=== PATIENT | female | born 1995 | race Caucasian/White ===

== ENCOUNTER 2022-06-02 08:44 | Emergency (ER) | payer SELFPAY ==
[2022-06-02] MEDS ORDERED: HYDROCODONE/APAP 10/325 TAB ONE (09:12)
--- NOTE | 2022-06-02 10:09 | RAD REPORT ---
EXAM DESCRIPTION: RAD - Foot Right 3 View - 06/02/2022 9:45 am CLINICAL HISTORY: fall, swelling, site of pain not further localized COMPARISON: No comparisonsdelete select FINDINGS: No fracture, dislocation or periosteal reaction. No acute bone or joint finding identifiab le. No plantar spur. No air or foreign body in the soft tissues. IMPRESSION: Negative right foot examination.
--- NOTE | 2022-06-02 10:10 | RAD REPORT ---
EXAM DESCRIPTION: RAD - Ankle Right 3 View - 06/02/2022 9:45 am CLINICAL HISTORY: fall, swelling COMPARISON: No comparisons FINDINGS: No fracture, dislocation or periosteal reaction. No joint effusion seen. No joint space na rrowing. Soft tissues along the lateral ankle lateral aspect midfoot appear thickened edematous. IMPRESSION: Negative right ankle for bone or joint abnormality. Lateral foot and ankle soft tissue swelling.
--- NOTE | 2022-06-02 11:07 | ER ---
Nurse's Notes [facility] Name: Rosmery Hdz Age: 26 yrs Sex: Female : 1995 Arrival Date: 06/02/2022 Time: 08:46 Bed 12 Private MD: Diagnosis: Other sprain of right foot Presentation: 06/02 08:54 Chief complaint: Patient states: R foot pain after tripping over dog last night. ss Coronavirus screen: Client denies travel out of the [place] in the last 14 days. Ebola Screen: Patient denies exposure to infectious person. Patient denies travel to an Ebola-affected area in the 21 days before illness onset. Initial Sepsis Screen: Does the patient meet any 2 criteria? No. Patient's initial sepsis screen is negative. Does the patient have a suspected source of infection? No. Patient's initial sepsis screen is negative. Risk Assessment: Do you want to hurt yourself or someone else? Patient reports no desire to harm self or others. Onset of symptoms was June 01, 2022. 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 - Social history:: Smoking status: Reported history of juuling and/or vaping. Assessment: 11:01 Reassessment: Patient appears in no apparent distress at this time. Patient and/or ss family updated on plan of care and expected duration. Pain level reassessed. Patient is alert, oriented x 3, equal unlabored respirations, skin warm/dry/pink. Vital Signs: 08:54 Weight 75.75 kg; Height 5 ft. 2 in. (157.48 cm); Pain 9/10; ss 08:56 BP 153 / 117; Pulse 114; Resp 18; Temp 98.4(TE); Pulse Ox 97% ; ss 08:54 Body Mass Index 30.54 (75.75 kg, 157.48 cm) ED Course: 08:46 Patient arrived in ED. rg4 08:46 Johan Escobar PA is PHCP. [facility] 08:46 Earnest Bowen DO is Attending Physician. [facility] 08:55 Triage completed. ss 08:55 Arm band placed on right wrist. ss 09:46 Foot Right 3 View XRAY In Process Unspecified. EDMS 09:46 Ankle Right 3 View XRAY In Process Unspecified. EDMS 11:01 Deanna Phelan, RN is Primary Nurse. ss 11:01 Humphrey wrap to right ankle. ss 11:17 Leonel Stearns MD is Referral Physician. [facility] 11:20 No provider procedures requiring assistance completed. Patient did not have IV access ss during this emergency room visit. Administered Medications: 09:08 Drug: Cartwright (HYDROcodone-acetaminophen) 10 mg-325 mg 1 tabs Route: PO; ss 11:01 Follow up: Response: No adverse reaction; Pain is decreased ss Outcome: 11:07 Discharge ordered by MD. [facility] 11:20 Discharged to home with crutches, with family. 11:20 Condition: good 11:20 Discharge instructions given to patient, Instructed on discharge instructions, follow up and referral plans. medication usage, Demonstrated understanding of instructions, follow-up care, medications, Prescriptions given X 2. 11:21 Patient left the ED. ss Signatures: Dispatcher [employer] EDNV Johan Escobar PA PA jmm Smirch, Shelby, MARILYN RN Bessy Rodriguez rg4
--- NOTE | 2022-06-02 11:07 | EDPHYS ---
Physician Documentation [facility] Name: Rosmery Hdz Age: 26 yrs Sex: Female : 1995 Arrival Date: 06/02/2022 Time: 08:46 Bed 12 Private MD: ED Physician Earnest Bowen HPI: 06/02 08:54 This 26 yrs old Female presents to ER via Other with complaints of Foot Injury. jmm 08:54 The patient presents with an injury, pain. Onset: The symptoms/episode began/occurred jmm acutely, just prior to arrival. Modifying factors: The symptoms are alleviated by the symptoms are aggravated by movement, weight bearing. Associated signs and symptoms: Pertinent positives: swelling. This is a 26 year old female with no chronic medical conditions that presents to the ED with complaiints of right ankle and foot swelling after she tripped yesterday. Denies hitting her head. . 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 - Social history:: Smoking status: Reported history of juuling and/or vaping. ROS: 08:54 Constitutional: Negative for fever, chills, and weight loss, Cardiovascular: Negative jmm for chest pain, palpitations, and edema, Respiratory: Negative for shortness of breath, cough, wheezing, and pleuritic chest pain. 08:54 MS/extremity: Positive for pain, swelling. 08:54 All other systems are negative. Exam: 08:54 Constitutional: This is a well developed, well nourished patient who is awake, alert, jmm and in no acute distress. Head/Face: atraumatic. Eyes: EOMI, no conjunctival erythema appreciated ENT: Moist Mucus Membranes Neck: Trachea midline, Supple Chest/axilla: Normal chest wall appearance and motion. Cardiovascular: Regular rate and rhythm. No edema appreciated Respiratory: Normal respirations, no respiratory distress appreciated Abdomen/GI: Non distended Back: Normal ROM Skin: General appearance color normal 08:54 Musculoskeletal/extremity: swelling noted to the right ankle and foot, compartments are soft, full dorsalis pedis pulse, NVI. 08:54 Skin: Appearance: Color: normal in color. 08:54 Neuro: Orientation: is normal, Mentation: is normal, Memory: is normal. 08:54 Psych: Behavior/mood is pleasant, cooperative. Vital Signs: 08:54 Weight 75.75 kg; Height 5 ft. 2 in. (157.48 cm); Pain 9/10; ss 08:56 BP 153 / 117; Pulse 114; Resp 18; Temp 98.4(TE); Pulse Ox 97% ; ss 08:54 Body Mass Index 30.54 (75.75 kg, 157.48 cm) ss MDM: 08:54 Patient medically screened. [facility] 11:05 Data reviewed: vital signs, nurses notes. Counseling: I had a detailed discussion with bertram the patient and/or guardian regarding: the historical points, exam findings, and any diagnostic results supporting the discharge/admit diagnosis, radiology results, the need for outpatient follow up, to return to the emergency department if symptoms worsen or persist or if there are any questions or concerns that arise at home. ED course: Xray is negative for fracture. Patient advised to follow up with ortho. patient otherwise given strict return precautions. patient understood and agrees with the plan of care. . 06/02 08:56 Order name: Foot Right 3 View XRAY; Complete Time: 10:39 [facility] 06/02 08:56 Order name: Ankle Right 3 View XRAY; Complete Time: 10:39 [facility] 06/02 08:56 Order name: Ice pack; Complete Time: 09:08 [facility] 06/02 10:58 Order name: Humphrey wrap-joint; Complete Time: 11:01 [facility] Administered Medications: 09:08 Drug: Lindley (HYDROcodone-acetaminophen) 10 mg-325 mg 1 tabs Route: PO; ss 11:01 Follow up: Response: No adverse reaction; Pain is decreased ss Disposition: 19:57 Co-signature as Attending Physician, Earnest RUIZ was immediately available on-site ms3 in the Emergency Department for consultation in the care of the patient.. Disposition Summary: 06/02/22 11:07 Discharge Ordered Location: Home [facility] Condition: Stable [facility] Diagnosis - Other sprain of right foot [facility] Followup: [facility] - With: Private Physician - When: 2 - 3 days - Reason: Recheck today's complaints, Continuance of care, Re-evaluation by your physician Followup: [facility] - With: Leonel Stearns MD - When: 2 - 3 days - Reason: Recheck today's complaints, Continuance of care, Re-evaluation by your physician Discharge Instructions: - Discharge Summary Sheet jmm - Ankle Sprain jmm - Foot Sprain jm Forms: - Medication Reconciliation Form [facility] - Thank You Letter [facility] - Antibiotic Education [facility] - Prescription Opioid Use [facility] Prescriptions: - Diclofenac Sodium 75 mg Oral Tablet Sustained Release - take 1 tablet by ORAL route 2 times per day; 30 tablet; Refills: 0, Product [facility] Selection Permitted - orphenadrine citrate 100 mg Oral Tablet Sustained Release - take 1 tablet by ORAL route 2 times per day As needed; 20 tablet; Refills: 0, jm Product Selection Permitted Signatures: Dispatcher [employer] Johan Carrasco PA PA jmm Smirch, Shelby, MARILYN RN Earnest Silva DO DO ms3
[2022-06-02 11:41] VITALS: BP 153/117; TEMP 98.4; O2SAT 97
== END 2022-06-02 11:21 | disposition home or self-care (01) ==
LOC: ER 08:44
DX: S93.691A Other sprain of right foot, initial encounter (principal)

== ENCOUNTER 2022-06-24 10:42 | Inpatient (IN) | payer SELFPAY ==
--- NOTE | 2022-06-24 12:51 | RAD REPORT ---
EXAM DESCRIPTION: RAD - Foot Right 3 View - 06/24/2022 12:43 pm CLINICAL HISTORY: SWELLING COMPARISON: Foot Right 3 View dated 06/02/2022 FINDINGS: There is a large amount of soft tissue swelling is seen along the dorsum of the foot. This is presumably related to significant infection. There is underlying irregularity seen of the dorsal aspect of the cuneiform bones suspicious for developing osteomyelitis.
[2022-06-24 13:52] LABS: Absolute Lymphocytes (CBC) 1.4 K/uL (0.7-4.9); Hematocrit 44.8 % (36.0-45.0); Lymphocytes % 16.6 % (15.3-44.8); MCV 87.4 fL (80-100); MPV 7.3 fL (7.6-11.3); RBC Red Blood Cell Count 5.12 M/uL (3.86-4.86)
[2022-06-24] MEDS ORDERED: NA CHLORIDE 0.9% 1,000 ML ONE (13:57)
[2022-06-24] MEDS ORDERED: CLINDAMYCIN 900MG/D5W 900 MG/50 ML IVPB IV ONE (13:57)
[2022-06-24 14:16] LABS: Potassium 3.8 mmol/L (3.5-5.1)
--- NOTE | 2022-06-24 14:34 | RAD REPORT ---
EXAM DESCRIPTION: MRI - Foot Right Wo Cont - 06/24/2022 2:23 pm CLINICAL HISTORY: foot abscess Foot pain and swelling COMPARISON: Foot Right 3 View dated 06/24/2022; Ankle Right 3 View dated 06/02/2022; Foot Right 3 View dated 06/02/2022 FINDINGS: Moderate edema is present along the dorsum of the forefoot and midfoot. Mild subcutaneous fat reticulation is present along the lateral margin of the foot. Localized fluid collection to indic ate abscess not seen. There is diminished T1 signal elevated T2/IR signal base of the second metatars al middle cuneiform bone most suggestive of osteomyelitis. IMPRESSION: Probable osteomyelitis involving the base of the second metatarsal as well as the middle cuneiform bone. Moderate soft tissue edema swelling along the dorsum of the mid and forefoot. No localized fluid kierra ection seen however infected fluid / pus is likely present in this region. .
--- NOTE | 2022-06-24 15:13 | ER ---
Nurse's Notes [facility] Name: Rosmery Hdz Age: 26 yrs Sex: Female : 1995 Arrival Date: 06/24/2022 Time: 10:46 Bed 24 Private MD: Diagnosis: Osteomyelitis, unspecified Presentation: 06/24 11:49 Chief complaint: Patient states: was here for and ankle sprain 3 weeks ago and had a iw cut on top of right foot, now the cut is still oozing pus, foot is more swollen, she finished a round of cephalexin. Coronavirus screen: At this time, the client does not indicate any symptoms associated with coronavirus-19. Ebola Screen: Patient negative for fever greater than or equal to 101.5 degrees Fahrenheit, and additional compatible Ebola Virus Disease symptoms Patient denies exposure to infectious person. Patient denies travel to an Ebola-affected area in the 21 days before illness onset. No symptoms or risks identified at this time. Initial Sepsis Screen: Does the patient meet any 2 criteria? No. Patient's initial sepsis screen is negative. Does the patient have a suspected source of infection? No. Patient's initial sepsis screen is negative. Risk Assessment: Do you want to hurt yourself or someone else? Patient reports no desire to harm self or others. Onset of symptoms was June 02, 2022. 11:49 Method Of Arrival: Ambulatory iw 11:49 Acuity: MAY 3 iw Historical: - Allergies: 11:50 No Known Allergies; iw - Home Meds: 11:50 None [Active]; iw - PMHx: 11:50 None; iw - PSHx: 11:50 R arm repair; iw - Immunization history:: Adult Immunizations up to date. - Social history:: Smoking status: . Screenin:43 Abuse screen: Denies threats or abuse. Nutritional screening: No deficits noted. bm7 Tuberculosis screening: No symptoms or risk factors identified. Fall Risk None identified. Assessment: 14:14 Reassessment: Pt still in MRI. bm7 14:29 Reassessment: Patient and/or family updated on plan of care and expected duration. Pain bm7 level reassessed. Patient is alert, oriented x 3, equal unlabored respirations, skin warm/dry/pink. Student nurses and teacher at bedside to update vitals and administer medications. 15:11 Reassessment: informed SECOND HAND of blood pressure. New orders received. bm7 15:23 Reassessment: Dr. Hilliard wants patient NPO after midnight. bm7 15:43 Reassessment: Patient and/or family updated on plan of care and expected duration. Pain bm7 level reassessed. Patient is alert, oriented x 3, equal unlabored respirations, skin warm/dry/pink. 16:05 General: Appears in no apparent distress. comfortable, well developed, Behavior is bm7 calm, cooperative, appropriate for age. Pain: Complains of pain in right foot. Neuro: No deficits noted. Cardiovascular: No deficits noted. Respiratory: No deficits noted. GI: No deficits noted. No signs and/or symptoms were reported involving the gastrointestinal system. : No deficits noted. No signs and/or symptoms were reported regarding the genitourinary system. EENT: No deficits noted. No signs and/or symptoms were reported regarding the EENT system. Derm: Skin is intact, is healthy with good turgor, Skin is dry, Skin is pink, warm \T\ dry. reddened area to the top of the right foot. Musculoskeletal: No deficits noted. No signs and/or symptoms reported regarding the musculoskeletal system. 17:17 Reassessment: pt report having redness and feeling hot after vanco has been running for ayon about an hour. vanco was stop ED MD ordered Benadryl and Pepcid. per ED MD to restart vanco after an hour to see if pt continues to have same reaction. 19:34 Reassessment: attempted to call report at 1917 and [phone]. Nurse unavailable . jb4 20:37 Reassessment: Patient appears in no apparent distress at this time. Patient and/or jb4 family updated on plan of care and expected duration. Pain level reassessed. Patient is alert, oriented x 3, equal unlabored respirations, skin warm/dry/pink. Vital Signs: 11:50 BP 156 / 110; Pulse 99; Resp 16; Temp 98.1; Pulse Ox 100% on R/A; Weight 72.57 kg; iw Height 5 ft. 2 in. (157.48 cm); 14:41 BP 160 / 105; Pulse 87; Resp 16; Pulse Ox 100% on R/A; bm7 15:25 BP 160 / 97; Pulse 90; Resp 16; Pulse Ox 99% on R/A; bm7 16:03 BP 156 / 90; Pulse 88; Resp 16; Pulse Ox 100% on R/A; bm7 17:21 BP 147 / 89; Pulse 96; Resp 18; Pulse Ox 100% ; ayon 20:00 BP 128 / 88; Pulse 91; Resp 16; Pulse Ox 99% on R/A; jb4 11:50 Body Mass Index 29.26 (72.57 kg, 157.48 cm) ED Course: 10:46 Patient arrived in ED. mr 11:00 Nelsonshahla Karen, [facility] jh7 11:00 Gui Kang MD is Attending Physician. 7 11:50 Triage completed. iw 11:50 Arm band placed on. iw 12:44 XRAY Foot RIGHT 3 View In Process Unspecified. EDMS 13:41 Wound Culture Sent. mb7 13:41 BMP Sent. mb7 13:41 CBC with Diff Sent. mb7 13:41 Inserted saline lock: 20 gauge in right antecubital area, using aseptic technique. mb7 Blood collected. 14:24 Foot Right Wo Cont In Process Unspecified. EDMS 14:29 Patient moved back from [facility]. bm7 15:12 Porfirio Ward MD is Hospitalizing Provider. [facility] 15:16 Katy Santizo, RN is Primary Nurse. bm7 15:43 No apparent distress. Resting quietly. Awaiting bed assignment. bm7 15:43 Patient has correct armband on for positive identification. Bed in low position. Call 7 light in reach. Adult w/ patient. Client placed on continuous cardiac and pulse oximetry monitoring. NIBP monitoring applied. Warm blanket given. 17:23 No provider procedures requiring assistance completed. ayon 19:04 Primary Nurse role handed off by Katy Santizo, RN eb 20:00 Patient admitted, IV remains in place. jb4 Administered Medications: 14:40 Drug: NS 0.9% 1000 ml Route: IV; Rate: 1 bolus; Site: right antecubital; bm7 15:44 Follow up: IV Status: Completed infusion; IV Intake: 1000ml bm7 14:40 Drug: Clindamycin 900 mg Route: IVPB; Infused Over: 30 mins; Site: right antecubital; bm7 15:10 Follow up: IV Status: Completed infusion 7 15:18 Drug: cloNIDine 0.1 mg Route: PO; bm7 16:03 Follow up: Response: Blood pressure is lowered 7 15:43 Drug: vancoMYCIN 1 grams Route: IVPB; Infused Over: 2 hrs; Site: right antecubital; bm7 17:19 Drug: Benadryl (diphenhydrAMINE) 25 mg Route: IVP; Site: right antecubital; ayon 17:19 Follow up: Response: No adverse reaction 17:19 Drug: Pepcid (famotidine) 20 mg Route: IVP; Site: right antecubital; ayon 17:19 Follow up: Response: No adverse reaction Medication: 15:43 VIS not applicable for this client. 7 Intake: 15:44 IV: 1000ml; Total: 1000ml. 7 Outcome: 15:12 Decision to Hospitalize by Provider. [facility] 20:00 Admitted to Med/surg accompanied by tech, via wheelchair, room 212, with chart. 4 20:00 Condition: stable 20:00 Discharge instructions given to patient, Instructed on the need for admit, Demonstrated understanding of instructions. 20:39 Patient left the ED. 4 Signatures: Dispatcher [employer] EDMO Lo Magana Irene, Marlon Bautista RN RN MARILYN [facility] Zahraa Herrera Brittany, RN MARILYN [facility] Lo Kowalski Angelina Nesbitt RN RN ha Hadash, Jennifer, FNP [employer] [facility] Corrections: (The following items were deleted from the chart) 11:52 11:50 BP 115 / ???; Pulse 99bpm; Resp 16bpm; Pulse Ox 100% RA; Temp 98.1F; 72.57 kg; iw Height 5 ft. 2 in.; BMI: 29.2; iw
--- NOTE | 2022-06-24 15:13 | EDPHYS ---
Physician Documentation [facility] Name: Rosmery Hdz Age: 26 yrs Sex: Female : 1995 Arrival Date: 06/24/2022 Time: 10:46 Bed 24 Private MD: CINDI Physician Gui Kang HPI: 06/24 11:55 This 26 yrs old Female presents to ER via Ambulatory with complaints of Abscess. jh7 11:55 the patient presents with a swollen area of the right foot. Description: draining, jh7 swollen, warm. Onset: The symptoms/episode began/occurred 3 week(s) ago. 15:45 Patient reports that she fell and sprained her R ankle 3 weeks ago. She noticed a small jh7 cut at the top of her foot then, but was not concerned about it. About a week later she noticed that it was red, swollen, and draining. She had a telehealth visit and was prescribed 10 days of cephalexin. She states that she is only gotten worse since then and that the wound is draining yellow/green pus. Denies any fever.. Historical: - Allergies: 11:50 No Known Allergies; iw - Home Meds: 11:50 None [Active]; iw - PMHx: 11:50 None; iw - PSHx: 11:50 R arm repair; iw - Immunization history:: Adult Immunizations up to date. - Social history:: Smoking status: . ROS: 13:45 Constitutional: Negative for fever, chills, and weight loss, Neck: Negative for injury, jh7 pain, and swelling, Cardiovascular: Negative for chest pain, palpitations, and edema, Respiratory: Negative for shortness of breath, cough, wheezing, and pleuritic chest pain, Abdomen/GI: Negative for abdominal pain, nausea, vomiting, diarrhea, and constipation, Back: Negative for injury and pain, MS/Extremity: Negative for injury and deformity, Neuro: Negative for headache, weakness, numbness, tingling, and seizure. 13:45 MS/extremity: Positive for abrasion, erythema, pain, swelling, tenderness, Negative for paresthesias. 13:45 Skin: Positive for cellulitis, erythema, swelling. 13:45 All other systems are negative. Exam: 13:45 Constitutional: This is a well developed, well nourished patient who is awake, alert, jh7 and in no acute distress. Eyes: Pupils equal round and reactive to light, extra-ocular motions intact. Lids and lashes normal. Conjunctiva and sclera are non-icteric and not injected. Cornea within normal limits. Periorbital areas with no swelling, redness, or edema. Cardiovascular: Regular rate and rhythm with a normal S1 and S2. No gallops, murmurs, or rubs. Normal PMI, no JVD. No pulse deficits. Respiratory: Lungs have equal breath sounds bilaterally, clear to auscultation and percussion. No rales, rhonchi or wheezes noted. No increased work of breathing, no retractions or nasal flaring. Abdomen/GI: Soft, non-tender, with normal bowel sounds. No distension or tympany. No guarding or rebound. No evidence of tenderness throughout. Back: No spinal tenderness. No costovertebral tenderness. Full range of motion. 13:45 Musculoskeletal/extremity: ROM: full active range of motion, Sensation intact. 13:45 Skin: cellulitis, The entire dorsum of the right foot is swollen, tender to palpation, and has a wound with scant purulent drainage present. There is mild erythema noted. Unable to palpate pulses due to swelling.. Vital Signs: 11:50 BP 156 / 110; Pulse 99; Resp 16; Temp 98.1; Pulse Ox 100% on R/A; Weight 72.57 kg; iw Height 5 ft. 2 in. (157.48 cm); 14:41 BP 160 / 105; Pulse 87; Resp 16; Pulse Ox 100% on R/A; bm7 15:25 BP 160 / 97; Pulse 90; Resp 16; Pulse Ox 99% on R/A; bm7 16:03 BP 156 / 90; Pulse 88; Resp 16; Pulse Ox 100% on R/A; bm7 17:21 BP 147 / 89; Pulse 96; Resp 18; Pulse Ox 100% ; ayon 20:00 BP 128 / 88; Pulse 91; Resp 16; Pulse Ox 99% on R/A; jb4 11:50 Body Mass Index 29.26 (72.57 kg, 157.48 cm) MDM: 13:39 Patient medically screened. [facility] 15:15 Data reviewed: lab test result(s), radiologic studies, MRI, plain films. Data [facility] interpreted: Pulse oximetry: is 99 %. Interpretation: normal. Counseling: I had a detailed discussion with the patient and/or guardian regarding: the historical points, exam findings, and any diagnostic results supporting the discharge/admit diagnosis, the need for further work-up and treatment in the hospital. Physician consultation: Foster Hilliard MD was called at 15:03, was contacted at 15:03, regarding admission, consult, would like medications started, Vancomycin. ED course: Patient admitted to Dr. Ward with Dr. Hilliard as a consulting physician. The patient has no documented history of hypertension, but states that physicians have told her that she is going to stroke out 1 day due to her blood pressure. The patient's pressure decreased after clonidine 0.1 mg was given.. 15:45 Differential diagnosis: abscess, cellulitis, osteomyelitis. Data reviewed: vital signs, [facility] nurses notes. 06/24 12:06 Order name: CBC with Diff; Complete Time: 14:06 [facility] 06/24 12:06 Order name: BMP; Complete Time: 14:17 [facility] 06/24 12:20 Order name: Wound Culture [facility] 06/24 15:58 Order name: Basic Metabolic Panel [facility] 06/24 15:58 Order name: Basic Metabolic Panel [facility] 06/24 15:58 Order name: CBC with Automated Diff [facility] 06/24 12:07 Order name: XRAY Foot RIGHT 3 View; Complete Time: 13:01 [facility] 06/24 13:36 Order name: Foot Right Wo Cont; Complete Time: 14:46 [facility] 06/24 15:58 Order name: CBC with Automated Diff [facility] 06/24 16:24 Order name: SARS RAPID 06/24 17:12 Order name: SARS-COV-2 Antigen Rapid [facility] 06/24 12:25 Order name: IV Saline Lock; Complete Time: 13:41 [facility] 06/24 15:19 Order name: NPO; Complete Time: 15:19 [facility] 06/24 15:58 Order name: Regular EDVT Administered Medications: 14:40 Drug: NS 0.9% 1000 ml Route: IV; Rate: 1 bolus; Site: right antecubital; bm7 15:44 Follow up: IV Status: Completed infusion; IV Intake: 1000ml [facility] 14:40 Drug: Clindamycin 900 mg Route: IVPB; Infused Over: 30 mins; Site: right antecubital; 7 15:10 Follow up: IV Status: Completed infusion [facility] 15:18 Drug: cloNIDine 0.1 mg Route: PO; 7 16:03 Follow up: Response: Blood pressure is lowered [facility] 15:43 Drug: vancoMYCIN 1 grams Route: IVPB; Infused Over: 2 hrs; Site: right antecubital; 7 17:19 Drug: Benadryl (diphenhydrAMINE) 25 mg Route: IVP; Site: right antecubital; ayon 17:19 Follow up: Response: No adverse reaction ayon 17:19 Drug: Pepcid (famotidine) 20 mg Route: IVP; Site: right antecubital; ayon 17:19 Follow up: Response: No adverse reaction Disposition Summary: 06/24/22 15:12 Hospitalization Ordered Hospitalization Status: Inpatient Admission [facility] Provider: Porfirio Ward [facility] Location: Telemetry/MedSurg (Inpatient) [facility] Condition: Stable [facility] Problem: new [facility] Symptoms: are unchanged [facility] Bed/Room Type: Standard [facility] Room Assignment: [facility](06/24/22 18:37) Diagnosis - Osteomyelitis, unspecified [facility] Forms: - Medication Reconciliation Form [facility] - SBAR form [facility] Signatures: Dispatcher [employer] Lulu Maurer RN RN dw Anderson, Corey, MD MD cha Williams, Irene, RN Katy Smith RN RN bm7 Breneman, Mary [facility] Angelina Adam RN RN ha Hadash, Jennifer, FNP [place] [id number] Corrections: (The following items were deleted from the chart) 15:47 11:55 Description: draining, swollen, warm, [place] [id number] 15:53 15:45 Skin: cellulitis, The entire dorsum of the right foot is swollen, tender to [facility] palpation, and has a wound with scant purulent drainage present. There is mild erythema noted. Unable to palpate pulses due to swelling., [facility] 15:53 15:45 Musculoskeletal/extremity: ROM: full active range of motion, Sensation intact. [facility] 15:53 15:45 Constitutional: This is a well developed, well nourished patient who is awake, [facility] alert, and in no acute distress. Eyes: Pupils equal round and reactive to light, extra-ocular motions intact. Lids and lashes normal. Conjunctiva and sclera are non-icteric and not injected. Cornea within normal limits. Periorbital areas with no swelling, redness, or edema. Cardiovascular: Regular rate and rhythm with a normal S1 and S2. No gallops, murmurs, or rubs. Normal PMI, no JVD. No pulse deficits. Respiratory: Lungs have equal breath sounds bilaterally, clear to auscultation and percussion. No rales, rhonchi or wheezes noted. No increased work of breathing, no retractions or nasal flaring. Abdomen/GI: Soft, non-tender, with normal bowel sounds. No distension or tympany. No guarding or rebound. No evidence of tenderness throughout. Back: No spinal tenderness. No costovertebral tenderness. Full range of motion. [facility] : 15:45 Skin: Positive for cellulitis, erythema, swelling, [place] [id number] :58 15:45 MS/extremity: Positive for abrasion, erythema, pain, swelling, tenderness, [facility] Negative for paresthesias, [facility] : 15:45 Constitutional: Negative for fever, chills, and weight loss, Neck: Negative for [facility] injury, pain, and swelling, Cardiovascular: Negative for chest pain, palpitations, and edema, Respiratory: Negative for shortness of breath, cough, wheezing, and pleuritic chest pain, Abdomen/GI: Negative for abdominal pain, nausea, vomiting, diarrhea, and constipation, Back: Negative for injury and pain, MS/Extremity: Negative for injury and deformity, Neuro: Negative for headache, weakness, numbness, tingling, and seizure, [facility] :58 15:45 All other systems are negative, [place] [address] 18:37 15:12 [facility] dw
[2022-06-24] MEDS ORDERED: cloNIDine HCL 0.1 MG TAB ONE (15:21)
[2022-06-24] MEDS ORDERED: VANCOMYCIN 1 GM/VIAL ONE (15:43)
[2022-06-24] MEDS ORDERED: NA CHLORIDE 0.9% 250 ML ONE (15:45)
[2022-06-24] MEDS ORDERED: ONDANSETRON 4 MG/2 ML VIAL IV PRN (15:52)
[2022-06-24] MEDS ORDERED: ACETAMINOPHEN 500 MG TAB PO PRN (15:52)
--- NOTE | 2022-06-24 15:59 | P.HP ---
Certification for Inpatient Patient admitted to: Inpatient With expected LOS: >2 Midnights Practitioner: I am a practitioner with admitting privileges, knowledge of patient current condition, hospital course, and medical plan of care. Services: Services provided to patient in accordance with Admission requirements found in Title 42 Section 412.3 of the Code of Federal Regulations Patient History Date of Service: 06/24/22 Reason for admission: Osteomyelitis of the right foot History of Present Illness: Patient is 26 years of age she sprained her ankle 3 weeks ago had a small abrasion at the top prescribed Keflex for 10 days by telehealth is been no improvement is gotten weak denies any fever or chills planing of pain in the right foot which is very swollen stable osteomyelitis no other medical history : Allergies No Known Allergies Allergy (Unverified 06/24/22 13:31) - Past Medical/Surgical History Past Medical History: Reviewed- Non-Contributory Past Surgical History: Patient denies surgical history Review of Systems 10-point ROS is otherwise unremarkable Physical Examination - Physical Exam General: Alert, Oriented x3 HEENT: Other Respiratory: Clear to auscultation bilaterally Cardiovascular: No edema, Normal S1 S2 Musculoskeletal: Other (Dorsum of the right foot is very swollen red and tender) - Studies Laboratory Data (last 24 hrs) 06/24/22 13:38: Sodium 134 L, Potassium 3.8, BUN 11, Creatinine 0.86, Glucose 90 06/24/22 13:38: WBC 8.4, Hgb 15.3 H, Hct 44.8, Plt Count 406 Assessment and Plan - Problems (Diagnosis) (1) Osteomyelitis of right foot Current Visit: Yes Status: Acute Plan: Patient is 26 years of age admitted with osteomyelitis of the right foot with a small abrasion unresponsive to outpatient therapy possible osteomyelitis treated with IV vancomycin she is going to need a set up for home IV therapy labs reviewed Qualifiers: Osteomyelitis type: subacute Qualified Code(s): M86.271 - Subacute osteomyelitis, right ankle and foot Discharge Plan: Home Plan to discharge in: 48 Hours - Advance Directives Does patient have a Living Will: No Does patient have a Durable POA for Healthcare: No
[2022-06-24] MEDS ORDERED: HYDROCODONE/APAP 5/325 MG TAB PO PRN (16:00)
[2022-06-24] MEDS ORDERED: VANCOMYCIN 1 GM in NA CHLORIDE 0.9% 250 ML IVPB SCH (16:00)
[2022-06-24] MEDS ORDERED: VANCOMYCIN 1.75 GM in NA CHLORIDE 0.9% 500 ML IVPB ONE (17:00)
[2022-06-24 17:11] LABS: SARS-CoV-2 Antigen Rapid Res Negative (Negative)
[2022-06-24] MEDS ORDERED: FAMOTIDINE 20 MG/2 ML VIAL IV ONE (17:21)
[2022-06-24] MEDS ORDERED: DIPHENHYDRAMINE 50 MG/ML VIAL ONE (17:21)
[2022-06-24] MEDS ORDERED: DIPHENHYDRAMINE 50 MG/ML VIAL IV PRN (19:33)
[2022-06-24] MEDS: HYDROMORPHONE HCL 1 MG/ML INJ IV PRN (21:03)
[2022-06-24 21:32] VITALS: BMI 29.2
[2022-06-25 00:48] LABS: Specific Gravity > 1.030 (1.005-1.030)
[2022-06-25] MEDS ORDERED: VANCOMYCIN 500 MG/VIAL ONE (04:21)
[2022-06-25] MEDS ORDERED: NA CHLORIDE 0.9% 250 ML ONE (04:22)
[2022-06-25] MEDS: VANCOMYCIN 1.25 GM in NA CHLORIDE 0.9% 250 ML IVPB SCH ×2 (05:09→17:12)
[2022-06-25 05:48] LABS: Absolute Lymphocytes (CBC) 1.2 K/uL (0.7-4.9); Hematocrit 39.8 % (36.0-45.0); Lymphocytes % 19.6 % (15.3-44.8); MCV 87.4 fL (80-100); MPV 7.1 fL (7.6-11.3); RBC Red Blood Cell Count 4.56 M/uL (3.86-4.86)
[2022-06-25 06:19] LABS: Potassium 3.3 mmol/L (3.5-5.1)
[2022-06-25] MEDS: ENOXAPARIN 40 MG/0.4 ML SQ SCH (08:04)
[2022-06-25] MEDS: HYDROMORPHONE HCL 1 MG/ML INJ IV PRN ×4 (08:10→21:56)
[2022-06-25] MEDS ORDERED: Ringers Lactate 1,000 ML IV ONE (08:46)
[2022-06-25] MEDS ORDERED: BUPIVACAINE 0.25% PF 10 ML VIAL ONE (09:01)
[2022-06-25] MEDS ORDERED: propofoL 200 MG/20 ML VIAL IV ONE (09:35)
[2022-06-25] MEDS ORDERED: LIDOCAINE 2% MPF 5 ML VIAL ONE (09:35)
[2022-06-25] MEDS ORDERED: FENTANYL CITR 100 MCG/2 ML ONE ×2 (09:38→09:57)
[2022-06-25] MEDS ORDERED: KETOROLAC 30 MG/ML INJ ONE (09:49)
[2022-06-25] MEDS ORDERED: ONDANSETRON 4 MG/2 ML VIAL ONE (09:50)
[2022-06-25] MEDS ORDERED: dexAMETHasone 10 MG/ML VIAL ONE (09:50)
[2022-06-25] MEDS: SODIUM HYPOCHLORITE 0.25% 473 ML ONE ×2 (09:56→10:00)
--- NOTE | 2022-06-25 10:12 | P.OP ---
Preoperative diagnosis: RIGHT Foot Infection Postoperative diagnosis: RIGHT Foot Infection Primary procedure: Incision and Drainage of RIGHT Foot Infection Anesthesia: GETA + Local Estimated blood loss: <5cc Specimen: debridement tissue Findings: abscess - during prep - necrotic tissue in dorsal midfoot Complications: None Transferred to: Recovery Room Condition: Good
[2022-06-25] MEDS: LABETALOL 20 MG/4ML SYRINGE IV ONE ×3 (10:25→11:00)
[2022-06-25] MEDS: HYDROMORPHONE HCL 1 MG/ML INJ ONE ×2 (10:27→10:38)
[2022-06-25] MEDS ORDERED: HYDRALAZINE HCL 20 MG/ML VIAL ONE (11:16)
[2022-06-25 11:21] VITALS: O2SAT 99
--- NOTE | 2022-06-25 12:03 | CON ---
Date of Consultation: 06/24/2022 Brief History Of Present Illness: Patient is a 26-year-old female who sprained her ankle approximate ly 3 weeks prior, had an abrasion on the top of her foot. She was given Keflex for 10 days by James joyner with no improvement. She got significantly worse symptoms, swelling, tenderness, pain, drainage from the dorsal aspect of her right foot from the previous abrasion. She is unsure of any puncture injuries to this area, but she has had purulent material draining from this. The foot is significant ly swollen, cellulitic, and tender. As such, she came to the emergency room with the above-stated co mplaints. Past Medical History: Denies. Past Surgical History: She has right arm surgery. Allergies: NO KNOWN DRUG ALLERGIES. Medications: None. Review of Systems: A 10-point review of systems other than HPI, denies. Physical Examination: General: She is awake, alert, and oriented. Psychiatric: She is appropriate, conversive. HEENT: She is normocephalic. Sclerae icteric. Mucous membranes are moist. Oropharynx clear. Neck: Supple. No JVD. Chest: Normal expansion and excursion. Cardiovascular: Regular rate and rhythm. Pulmonary: Clear to auscultation bilaterally. Abdomen: Soft. Extremities: Focused examination of lower extremities, she has swelling, tenderness, and cellulitis with purulent material draining from the dorsal aspect of the right foot into the midfoot position. There is an abrasion distal to this as well. Also, in the radial distribution. Skin is otherwise el sewhere unremarkable. There was tenderness to the foot by the way as well. Laboratory Data: She had a laboratory exam, which shows a white blood cell count of 8.4, hemoglobin is 15.3, hematocrit 44.8, platelet count was 406, neutrophils 75%. Her chemistry showed a sodium 134 , potassium 3.8, chloride 101, carbon dioxide 25, BUN 11, creatinine 0.8, glucose is 90. Urinalysis showed a urine negative. COVID was negative. She had imaging performed as well, which inc luded a foot MRI on 06/24/2022, officially read as probable osteomyelitis involving the base of the s econd metatarsal as well as the middle cuneiform bone, moderate soft tissue edema, swelling of the do rsal, midfoot, and forefoot. No localized fluid collection. However, infected fluid/pus is likely p resent in this region. Assessment And Plan: This is a 26-year-old female, who presents with signs and symptoms of infection of the dorsal foot with purulent material draining consistent with an abscess/infectious process. 1.IV fluid hydration. 2.Antibiotic coverage. 3.I have explained the risks, benefits, and alternatives of incision and drainage and possible debri dale of the dorsal foot including, but not limited to bleeding, infection, damage to surrounding ti ssues, injury to nerves, tissue loss including loss of toes, need for further operations and procedur es. Patient agrees to proceed as indicated. CICI/JEROMY Voice ID: [id number] Report ID: [id number]
--- NOTE | 2022-06-25 12:30 | OP ---
Date of Procedure: 06/25/2022 Surgeon: Foster Hilliard MD, Preoperative Diagnosis: Right foot infection. Postoperative Diagnosis: Right foot infection. Procedure Performed: Incision and drainage of right foot infection. Anesthesia: General endotracheal plus local, 0.25% Marcaine. Estimated Blood Loss: 5 cc. Specimen: Debrided tissue. Findings: Abscess which drained during prep on the dorsal aspect of the foot and necrotic tissue in the dorsal aspect of the midfoot. Complications: None. Disposition: Patient was transferred to the recovery room in good condition. Procedure In Detail: After informed consent was obtained, patient was brought to the operating room, prepped and draped in the usual sterile fashion. After adequate anesthesia was achieved, an area of the dorsal midfoot surrounding an area of drainage was circumferentially dissected using a 15 blade down to subcutaneous tissues. This tissue was sent off for pathologic examination with debridement t issue. I then found a track from where the abscess cavity was evident downtracking through the dorsa l aspect muscles in the extensor compartment of the midfoot. I used a curette to remove all necrotic tissue. The area was copiously irrigated until completely clear. Hemostasis was achieved with elec trocautery. Muscles were spared throughout and all necrotic tissue was dissected using a predominant ly sharp dissection with Metzenbaum scissors and the muscle fibers with a hemostat. After all necrotic tissue was removed, the area was cleansed once again and hemostasis was achieved with m inimal electrocautery. The area was copiously irrigated 1 last time and inspected for hemostasis. N o additional hemostasis was required. 0.25 inch plain packing soaked in 0.25% Dakin solution was the n packed in the wound and a sterile dressing was placed on the top. Patient tolerated the procedure without evidence of complication and transferred to PACU in good condition. All counts were correct at the end of the case. TK/MODL Voice ID: [id number] Report ID: [id number]
[2022-06-26] MEDS ORDERED: Ringers Lactate 1,000 ML IV SCH (05:00)
[2022-06-26] MEDS: HYDROMORPHONE HCL 1 MG/ML INJ IV PRN ×4 (07:05→22:18)
[2022-06-26] MEDS ORDERED: LORazepam 2 MG/ML VIAL IV ONE (08:14)
[2022-06-26] MEDS: VANCOMYCIN 1.25 GM in NA CHLORIDE 0.9% 250 ML IVPB SCH ×2 (08:30→17:46)
[2022-06-26] MEDS: ENOXAPARIN 40 MG/0.4 ML SQ SCH (08:30)
--- NOTE | 2022-06-26 13:06 | RAD REPORT ---
EXAM DESCRIPTION: US - Extremity Venous Uni Ltd - 06/26/2022 12:55 pm CLINICAL HISTORY: Pain COMPARISON: None. TECHNIQUE: Real-time sonographic evaluation of the left upper extremity deep venous system was perfo rmed. FINDINGS: Normal compressibility, flow augmentation, phasic flow and spontaneous flow is identified in the left upper extremity deep venous system. No intraluminal filling defects seen. The PICC is buddy ntified within the vein. IMPRESSION: No DVT in the left upper extremity.
[2022-06-27] MEDS: HYDROMORPHONE HCL 1 MG/ML INJ IV PRN ×2 (05:27→13:43)
[2022-06-27] MEDS: VANCOMYCIN 1.25 GM in NA CHLORIDE 0.9% 250 ML IVPB SCH (06:39)
[2022-06-27 06:41] LABS: Potassium 3.7 mmol/L (3.5-5.1)
--- NOTE | 2022-06-27 07:36 | P.PN ---
Subjective Date of Service: 06/25/22 Subjective: No new changes, No C/O voiced, Improving patient is doing well status post incision and debridement of the abscess. MRI did show osteomyelitis. Patient will need IV antibiotics. Cultures are pending but at this time are negative. Will get Infectious Disease consultation as well. Review of Systems 10-point ROS is otherwise unremarkable Physical Examination - Vital Signs Temperature: 96.9 F Blood Pressure: 161/98 Pulse: 69 Respirations: 15 Pulse Ox (%): 100 - Physical Exam General: Alert, In no apparent distress, Oriented x3 HEENT: Atraumatic, PERRLA, EOMI Neck: Supple, JVD not distended Respiratory: Clear to auscultation bilaterally, Normal air movement Cardiovascular: Regular rate/rhythm, Normal S1 S2 Gastrointestinal: Normal bowel sounds, No tenderness Musculoskeletal: Tenderness ( Of the right foot) Integumentary: Tenderness/swelling, Erythema Neurological: Sensation intact, Cranial nerves 3-12 intact Lymphatics: No axilla or inguinal lymphadenopathy - Studies Microbiology Data (last 24 hrs): 06/24/22 13:35 Wound - Right Foot Gram Stain - Final Medications List Reviewed: Yes Assessment & Plan - Problems (Diagnosis) (1) Osteomyelitis of right foot Current Visit: Yes Status: Acute Qualifiers: Osteomyelitis type: subacute Qualified Code(s): M86.271 - Subacute osteomyelitis, right ankle and foot - Plan 1. Continue with IV antibiotic 2. Continue with local wound care 3. Wound care consultation/surgical consultation appreciated; infected Disease consultation as well 4. Hep-Lock IV 5. Monitor CBC 6. anxiolytics as needed 7. Pain control 8. GI and DVT prophylaxis Discharge Plan: Home Plan to discharge in: Greater than 2 days - Advance Directives Does patient have a Living Will: No Does patient have a Durable POA for Healthcare: No - Code Status/Comfort Care Code Status Assessed: Yes Code Status: Full Code Critical Care: No Time Spent Managing PTS Care (In Minutes): 45
--- NOTE | 2022-06-27 07:39 | P.PN ---
Date of Service: 06/26/22 Subjective patient had a panic attack and was given some benzos today. She is feeling better. Medically she is also doing better. PICC line has been placed. Waiting for Infectious Disease recommendations for antibiotics at discharge. Spoke with pharmacy in the plan would be to either go with daptomycin or Levaquin at discharge. MRI did show osteomyelitis. Cultures are pending but at this time are negative. Review of Systems 10-point ROS is otherwise unremarkable Physical Examination - Vital Signs Reviewed - Physical Exam General: Alert, In no apparent distress, Oriented x3 Respiratory: Clear to auscultation bilaterally, Normal air movement Cardiovascular: Regular rate/rhythm, Normal S1 S2 Gastrointestinal: Normal bowel sounds, No tenderness Musculoskeletal: Tenderness ( Of the right foot) Integumentary: Tenderness/swelling, Erythema Neurological: Sensation intact, Cranial nerves 3-12 intact Assessment & Plan - Problems (Diagnosis) (1) Osteomyelitis of right foot Current Visit: Yes Status: Acute Qualifiers: Osteomyelitis type: subacute Qualified Code(s): M86.271 - Subacute osteomyelitis, right ankle and foot - Plan continue with plan of care as mentioned below: 1. Continue with IV antibiotic 2. Continue with local wound care 3. Wound care consultation/surgical consultation appreciated; infected Disease consultation as well 4. Hep-Lock IV 5. Monitor CBC 6. anxiolytics as needed 7. Pain control 8. GI and DVT prophylaxis Discharge Plan: Home Plan to discharge in: 24-48 hours; awaiting for arrangements for outpatient antibiotics - Advance Directives Does patient have a Living Will: No Does patient have a Durable POA for Healthcare: No - Code Status/Comfort Care Code Status Assessed: Yes Code Status: Full Code Critical Care: No Time Spent Managing PTS Care (In Minutes): 45
[2022-06-27] MEDS: ENOXAPARIN 40 MG/0.4 ML SQ SCH (09:11)
--- NOTE | 2022-06-27 09:30 | P.PN ---
Subjective Date of Service: 06/26/22 Chief Complaint: Osteomyelitis of the right foot Subjective: Improving Review of Systems L arm pain Physical Examination - Vital Signs Temperature: 97.1 F Blood Pressure: 141/89 Pulse: 75 Respirations: 16 Pulse Ox (%): 100 - Physical Exam General: Alert, In no apparent distress, Cooperative Integumentary: Other (Foot less swollen, cellullitis improving, wound clean and dry) - Studies Microbiology Data (last 24 hrs): 06/24/22 13:35 Wound - Right Foot Gram Stain - Final Medications List Reviewed: Yes Assessment And Plan - Plan - wound care per my orders - antibiotics per Dr. Velasco - follow up with me in 1 week - medical management per Dr. Velasco
--- NOTE | 2022-06-27 11:46 | RAD REPORT ---
EXAM DESCRIPTION: RAD - Chest Single View - 06/26/2022 3:41 am CLINICAL HISTORY: The patient is 26 years old and is Female; S/P PICC insertion TECHNIQUE: Single view of the chest. COMPARISON: No relevant prior studies available. FINDINGS: Lungs: No pulmonary vascular congestion or consolidation. Pleural space: Unremarkable. No pneumothorax. Heart: Unremarkable. No cardiomegaly. Mediastinum: Unremarkable. Bones/joints: Old right fourth rib fracture. Tubes, lines and devices: Left PICC line is in the SVC. Upper abdomen: No free air in the visualized upper abdomen. IMPRESSION: Left PICC line is in the SVC. Electronically signed by: Brenda Jung MD 06/26/2022 6:10 AM CDT Due to temporary technical issues with the PACS/Fluency reporting system, reports are being signed by the in house radiologists without review as a courtesy to insure prompt reporting. The interpreting radiologist is fully responsible for the content of the report.
[2022-06-27] MEDS ORDERED: NA CHLORIDE 0.9% IVPB ONE (14:00)
[2022-06-27] MEDS ORDERED: DAPTOMYCIN IVPB ONE (14:00)
--- NOTE | 2022-06-27 16:14 | P.DS ---
Admission Date: 06/24/22 Discharge Date: 06/27/22 Disposition: ROUTINE DISCHARGE Discharge Condition: GOOD Reason for Admission: Osteomyelitis of the right foot Consultations: 1. General Surgery 2. Infectious Diseases Procedures: - 06/25/2022 - Incision and Drainage of Right Foot Infection Hospital Course: DIAGNOSES: # Right Foot Osteomyelitis # Nausea/Vomiting - concern for Vancomycin intolerance # Old Right 4th Rib Fracture HOSPITAL COURSE: Ms. Rosmery Hdz is a 26 year old female with no reported past medical history who was admitted to the [facility] on 06/24/2022 for right foot pain. Upon further evaluation, she was noted to have right foot osteomyelitis. General Surgery was consulted and she underwent an incision and drainage of the infection, without any apparent complications. She did well postoperatively and was evaluated by Infectious Diseases. Dr. Reese evaluated her and recommended that she be discharged on Daptomycin 6 mg/kg IV daily for a total of 42 days. With the assistance of case management, she was set up for IV daptomycin as an outpatient. On 06/27/2022, she was seen on rounds and deemed medically stable for discharge. She was discharged with instructions to schedule follow-up appointments with her PCP in 3-5 days and with General Surgery (Dr. Hilliard) in 1 week. She was provided with instructions on how to manage her wound care at home and will follow up with Dr. Hilliard for wound checks. She was given the opportunity to ask questions and reported no further questions. Furthermore, all questions were answered to the best of my ability. Today, I personally spent 20 minutes on her case, of which greater than 50% of the time was spent in patient education, counseling, and coordination of care as described above. Vital Signs/Physical Exam: Temp Pulse Resp BP Pulse Ox 97.3 F 91 H 16 138/90 100 06/27/22 12:00 06/27/22 12:00 06/27/22 14:13 06/27/22 13:23 06/27/22 14:13 General: Alert, In no apparent distress, Oriented x3 HEENT: Atraumatic, PERRLA, Mucous membr. moist/pink, EOMI, Sclerae nonicteric Neck: Supple, JVD not distended Respiratory: Clear to auscultation bilaterally, Normal air movement Cardiovascular: No edema, Regular rate/rhythm, Normal S1 S2, No gallops, No rubs, No murmurs Gastrointestinal: Normal bowel sounds, Soft and benign, Non-distended, No tenderness, No rebound, No guarding Musculoskeletal: No clubbing, Other (Right foot wrapped in clean surgical dressing) Integumentary: No rashes Neurological: Normal speech, Normal affect Laboratory Data at Discharge: WBC 6.2 K/uL (4.3-10.9) D 06/25/22 05:36 Hgb 13.5 g/dL (12.0-15.0) 06/25/22 05:36 Hct 39.8 % (36.0-45.0) 06/25/22 05:36 Plt Count 338 K/uL (152-406) 06/25/22 05:36 Sodium 140 mmol/L (136-145) 06/27/22 05:19 Potassium 3.7 mmol/L (3.5-5.1) 06/27/22 05:19 BUN 6 mg/dL (7-18) L 06/27/22 05:19 Creatinine 0.70 mg/dL (0.55-1.3) 06/27/22 05:19 Glucose 87 mg/dL (74-106) 06/27/22 05:19 Home Medications: DAPTOmycin [Cubicin] 435 mg IV LUNCH 41 Days #41 vial 06/27/22 Ondansetron [Zofran] 4 mg PO Q8HP PRN #20 tab 06/27/22 New Medications: Ondansetron [Zofran] 4 mg PO Q8HP PRN #20 tab PRN Reason: Nausea / Vomiting DAPTOmycin [Cubicin] 435 mg IV LUNCH 41 Days #41 vial Physician Discharge Instructions: 1. Please schedule follow-up with PCP in 3-5 days 2. Please schedule follow-up with Dr. Hilliard in 1 week Followup: NONE,NONE [Primary Care Provider] - Time spent managing pt's care (in minutes): 20
[2022-06-27 16:20] VITALS: BP 144/104; TEMP 97
--- NOTE | 2022-06-27 18:05 | CON ---
History Of Present Illness: This is a 26-year-old female. I was consulted for evaluation of osteomy elitis of second metatarsal as well as middle cuneiform bone of the right side. The patient had a wo und on her foot, which was treated for possible infection, which did not improve. The patient is now in for IV antibiotic and wound management. The patient already had debridement done by surgical tea m. Currently getting vancomycin. As per staff, the patient had Red man syndrome reaction and curren tly getting slow infusion. Past Medical History: None. Social History: Nonsmoker, nondrinker. Family History: Noncontributory. Medications: Vancomycin. See MAR for other medications. Allergies: NO KNOWN DRUG ALLERGIES. Review of Systems: A 10-point review was performed. Physical Examination: General: The patient is lying in bed, not in any acute cardiopulmonary distress. Vital Signs: Temperature 97, pulse 91, respirations 16, blood pressure 168/103. HEENT: Unremarkable. Neck: Supple. Lungs: Clear to auscultation. Heart: S1, S2. Regular. Abdomen: Soft, nontender. Bowel sounds present. Extremity: Right foot surgical dressing. Assessment And Plan: MRI shows right foot second metatarsal and middle cuneiform bone osteomyelitis. Recommend antibiotic for 6 weeks' duration. Foot culture is showing skin marlon. Follow up with [facility] team and wound care. Monitor vancomycin level and BMP twice a week. We will follow the patie nt closely. Thank you for consult. NF/MODL Voice ID: [id number] Report ID: [id number]
== END 2022-06-27 17:07 | disposition home or self-care (01) | DRG 464 ==
LOC: ER 10:42 → ERHOLD 15:52 → 2ND 20:04
PROVIDERS: ADMIT Internal Medicine Sleep Medicine; ATTEND Internal Medicine Sleep Medicine
PROC: 0JBQ0ZZ Excision of Right Foot Subcutaneous Tissue and Fascia, Open Approach (ICD-10-PCS; 2022-06-25)
PROC: 02HV33Z Insertion of Infusion Device into Superior Vena Cava, Percutaneous Approach (ICD-10-PCS; principal; 2022-06-26)
PROC: 3E04329 Introduction of Other Anti-infective into Central Vein, Percutaneous Approach (ICD-10-PCS; 2022-06-26)
DX: M86.171 Other acute osteomyelitis, right ankle and foot (principal); S22.31XA Fracture of one rib, right side, initial encounter for closed fracture; R11.2 Nausea with vomiting, unspecified; T36.8X5A Adverse effect of other systemic antibiotics, initial encounter; Y92.230 Patient room in hospital as the place of occurrence of the external cause; F41.0 Panic disorder [episodic paroxysmal anxiety]; Z20.822 Contact with and (suspected) exposure to COVID-19
CPT/HCPCS: 36415; 36569; 71045; 80048; 80202; 81025; 85025; 87070; 87205; 87811; 88304; 88311; 93971; 96361; 96365; 96375; 99285; J0360; J0878; J1100; J1170; J1200; J1650; J2405; J2704; J3010; J3370; J7030; J7040; J7050; J7120

== ENCOUNTER 2022-06-29 08:21 | Emergency (ER) | payer SELFPAY ==
[2022-06-29 09:25] LABS: Absolute Lymphocytes (CBC) 1.1 K/uL (0.7-4.9); Hematocrit 42.8 % (36.0-45.0); Lymphocytes % 19.3 % (15.3-44.8); MCV 87.4 fL (80-100); MPV 7.2 fL (7.6-11.3)
[2022-06-29 09:33] LABS: Protime INR 1.04
--- NOTE | 2022-06-29 09:41 | RAD REPORT ---
EXAM DESCRIPTION: Jaime Single View06/29/2022 9:30 am CLINICAL HISTORY: Chest pain COMPARISON: May 2022 FINDINGS: The lungs appear clear of acute infiltrate. The heart is normal size IMPRESSION: No acute abnormalities displayed
[2022-06-29 09:43] LABS: ALT/SGPT 84 U/L (12-78); AST/SGOT 80 U/L (15-37); Albumin 3.3 g/dL (3.4-5.0); Alkaline Phosphatase 69 U/L (45-117); BUN Blood Urea Nitrogen 8 mg/dL (7-18); Bicarbonate 25 mmol/L (21-32); Bilirubin Total 0.2 mg/dL (0.2-1.0); Glomerular Filtration Rate 104 ml/min (=/>90); Glucose Level 104 mg/dL (74-106); Magnesium 1.8 mg/dL (1.8-2.4); NT PRO-BNP 47 pg/mL (<125); Potassium 3.8 mmol/L (3.5-5.1); Sodium Level 137 mmol/L (136-145); Troponin High Sensitivity 3.6 pg/mL (<58.9)
[2022-06-29 09:44] LABS: Bilirubin Direct < 0.1 mg/dL (0-0.2)
--- NOTE | 2022-06-29 10:29 | RAD REPORT ---
EXAM DESCRIPTION: CT - Chest For Pe Angio - 06/29/2022 10:18 am CLINICAL HISTORY: Chest pain COMPARISON: None. TECHNIQUE: Dynamically enhanced axial 3 mm thick images of the chest were obtained during administra tion of <100> mL Isovue 370 IV contrast. Coronal and oblique reconstruction images were generated and reviewed. Exam utilizes a protocol for optimal evaluation of pulmonary arterial tree. Maximum intensity projections 3D imaging was utilized All CT scans are performed using dose optimization technique as appropriate and may include automated exposure control or mA/KV adjustment according to patient size. FINDINGS: The opacification of the pulmonary arteries is suboptimal. A central pulmonary embolus is not seen. Limited evaluation of peripheral pulmonary arteries A thoracic aortic aneurysm is not noted. A pleural effusion is not seen. A pericardial effusion is not seen. A lung consolidation is not present. IMPRESSION: Central pulmonary embolus is not seen
[2022-06-29] MEDS ORDERED: MORPHINE 4 MG/ML SYR ONE (10:58)
[2022-06-29] MEDS ORDERED: ONDANSETRON 4 MG/2 ML VIAL ONE (10:59)
--- NOTE | 2022-06-29 12:11 | EDPHYS ---
Physician Documentation [facility] Name: Rosmery Hdz Age: 26 yrs Sex: Female : 1995 Arrival Date: 06/29/2022 Time: 08:23 Bed 13 Private MD: ED Physician Gui Kang HPI: 06/29 08:31 This 26 yrs old Female presents to ER via Ambulatory with complaints of Chest Pain. [facility] 08:31 The patient or guardian reports chest pain that is located primarily in the substernal [facility] area. The pain radiates to Associated signs and symptoms: Pertinent negatives: shortness of breath. The chest pain is described as a pressure. Duration: The patient or guardian reports a single episode, that is still ongoing. Modifying factors: The symptoms are alleviated by nothing. the symptoms are aggravated by nothing. This is a 26 year old female with no chronic medical conditions that presents to the ED with complaints of left sided substernal chest pain which radiates from her left breast to her neck. Patient described this as pressure. Denies vomiting, nausea. . RN [facility]: 08:28 LMP 06/13/2022 tw2 Historical: - Allergies: 08:26 vancomycin; tw2 - Home Meds: 08:26 hydrocodone-acetaminophen 2.5-325 mg Oral tab 1 tab every 4 hours [Active]; Zofran 4 mg tw2 Oral tab 1 tab 4 times per day [Active]; - PMHx: 08:29 None; tw2 - PSHx: 08:26 R arm repair; PICC line LEFT upper arm; right foot surgery; tw2 - Immunization history:: Client reports receiving the 2nd dose of the Covid vaccine. - Social history:: Smoking status: Patient denies any tobacco usage or history of. ROS: 08:31 Constitutional: Negative for fever, chills, and weight loss. jmm 08:31 Cardiovascular: Positive for chest pain. 08:31 Respiratory: Positive for shortness of breath. 08:31 All other systems are negative. Exam: 08:31 Constitutional: This is a well developed, well nourished patient who is awake, alert, jmm and in no acute distress. Head/Face: atraumatic. Eyes: EOMI, no conjunctival erythema appreciated ENT: Moist Mucus Membranes Neck: Trachea midline, Supple Chest/axilla: Normal chest wall appearance and motion. Cardiovascular: Regular rate and rhythm. No edema appreciated Respiratory: Normal respirations, no respiratory distress appreciated Abdomen/GI: Non distended Back: Normal ROM Skin: General appearance color normal MS/ Extremity: Moves all extremities, no obvious deformities appreciated, no edema noted to the lower extremities Neuro: Awake and alert Psych: Behavior is normal, Mood is normal, Patient is cooperative and pleasant 08:38 ECG was reviewed by the Attending Physician. [facility] Vital Signs: 08:23 Pulse Ox 98% on R/A; Weight 70.31 kg (R); Height 5 ft. 1 in. (154.94 cm); Pain 7/10; tw2 08:28 BP 146 / 116; Pulse 102; Resp 17; Temp 97.5(TE); tw2 09:25 BP 159 / 107; Pulse 79; Resp 16; Pulse Ox 95% on R/A; kr3 10:30 BP 159 / 114; Pulse 82; Resp 16; Pulse Ox 100% on R/A; kr3 11:30 BP 134 / 95; Pulse 78; Resp 16; Pulse Ox 98% on R/A; kr3 12:30 BP 141 / 97; Pulse 83; Resp 16; Temp 98.2(TE); Pulse Ox 99% on R/A; kr3 08:23 Body Mass Index 29.29 (70.31 kg, 154.94 cm) tw2 MDM: 08:38 Patient medically screened. [facility] 12:08 Data reviewed: vital signs, nurses notes. Counseling: I had a detailed discussion with [facility] the patient and/or guardian regarding: the historical points, exam findings, and any diagnostic results supporting the discharge/admit diagnosis, lab results, radiology results, the need for outpatient follow up, to return to the emergency department if symptoms worsen or persist or if there are any questions or concerns that arise at home. ED course: Patient is alert and non toxic in appearance in the ED. Repeat troponin wnl. . 06/29 08:31 Order name: Basic Metabolic Panel; Complete Time: 09:45 [facility] 06/29 08:31 Order name: CBC with Diff; Complete Time: 09:27 [facility] 06/29 08:31 Order name: LFT's; Complete Time: 09:45 [facility] 06/29 08:31 Order name: Magnesium; Complete Time: 09:45 [facility] 06/29 08:31 Order name: NT PRO-BNP; Complete Time: 09:45 jmm 08 08:31 Order name: PT-INR; Complete Time: 09:43 jmm 06/29 08:31 Order name: Troponin HS; Complete Time: 09:45 jmm 0803 08:31 Order name: XRAY Chest (1 view); Complete Time: 09:56 jmm 06/29 08:31 Order name: D-Dimer; Complete Time: 09:43 jmm 06/29 09:44 Order name: CT Chest For PE Angio; Complete Time: 11:06 jmm 06/29 11:09 Order name: Troponin High Sensitivity; Complete Time: 11:44 jmm 06/29 08:31 Order name: EKG; Complete Time: 08:34 jmm 06/29 08:31 Order name: Cardiac monitoring; Complete Time: 08:41 jmm 08 08:31 Order name: EKG - Nurse/Tech; Complete Time: 08:41 jmm 06/29 08:31 Order name: IV Saline Lock; Complete Time: 09:18 jmm 06/29 08:31 Order name: Labs collected and sent; Complete Time: 09:18 jmm 08 08:31 Order name: O2 Per Protocol; Complete Time: 08:32 jmm 06/29 08:31 Order name: O2 Sat Monitoring; Complete Time: 08:32 jmm EC:38 Rate is 95 beats/min. Rhythm is regular. QRS [place] is Normal. [place] interval is normal. QRS jmm interval is normal. QT interval is normal. No Q waves. T waves are Normal. No ST changes noted. Reviewed by me. Administered Medications: 10:55 Drug: Zofran (Ondansetron) 4 mg Route: IVP; Site: right antecubital; kr3 12:52 Follow up: Response: No adverse reaction kr3 10:59 Drug: morphine 4 mg Route: IVP; Infused Over: 4 mins; Site: right antecubital; kr3 12:52 Follow up: Response: No adverse reaction; RASS: Alert and Calm (0) kr3 12:30 Drug: GI Cocktail without - (Maalox Suspension 30 ml, Lidocaine Liquid 2 % 15 kr3 ml) Route: PO; 12:52 Follow up: Response: No adverse reaction kr3 Disposition Summary: 06/29/22 12:10 Discharge Ordered Location: Home [facility] Condition: Stable jmm Diagnosis - Chest pain, unspecified jmm Followup: jmm - With: Private Physician - When: 2 - 3 days - Reason: Recheck today's complaints, Continuance of care, Re-evaluation by your physician Discharge Instructions: - Discharge Summary Sheet jmm - Nonspecific Chest Pain, Adult jmm Forms: - Medication Reconciliation Form [facility] - Thank You Letter [facility] - Antibiotic Education m - Prescription Opioid Use [facility] Signatures: Dispatcher [employer] EDJohan Prieto PA PA jmm Wise, Tara, RN RN tw2 Linsey Jacobson RN RN kr3
--- NOTE | 2022-06-29 12:11 | ER ---
Nurse's Notes [facility] Name: Rosmery Hdz Age: 26 yrs Sex: Female : 1995 Arrival Date: 06/29/2022 Time: 08:23 Bed 13 Private MD: Diagnosis: Chest pain, unspecified Presentation: 06/29 08:23 Chief complaint: Patient states: i have a picc line ( upper LEFT arm) and i am supposed tw2 to go to day surgery for iv infusion.. and i am having chest pain that started 2 or 3 hours ago. i feel like i am having trouble swallowing. yesterday when i went to the infusion she couldn't get blood out of it. the chest pain starts behind my rib cage and under my left breast and shoots up into my collar bone. if i bend forward i feel like i am struggling to swallow. i also felt more pain when laying flat. Coronavirus screen: At this time, the client does not indicate any symptoms associated with coronavirus-19. Ebola Screen: Patient denies travel to an Ebola-affected area in the 21 days before illness onset. Initial Sepsis Screen: Does the patient meet any 2 criteria? No. Patient's initial sepsis screen is negative. Does the patient have a suspected source of infection? No. Patient's initial sepsis screen is negative. Risk Assessment: Do you want to hurt yourself or someone else? Patient reports no desire to harm self or others. Onset of symptoms was June 29, 2022. 08:23 Method Of Arrival: Ambulatory tw2 08:23 Acuity: MAY 3 tw2 Triage Assessment: 08:26 General: Appears in no apparent distress. Behavior is calm, cooperative, appropriate tw2 for age. Pain: Complains of pain in chest. Neuro: Level of Consciousness is awake, alert, obeys commands, Oriented to person, place, time, situation. Cardiovascular: Capillary refill < 3 seconds. Respiratory: Airway is patent Respiratory effort is even, unlabored, Respiratory pattern is regular, symmetrical. RN PROGRESSIVE CARE UNIT: 08:28 LMP 06/13/2022 tw2 Historical: - Allergies: 08:26 vancomycin; tw2 - Home Meds: 08:26 hydrocodone-acetaminophen 2.5-325 mg Oral tab 1 tab every 4 hours [Active]; Zofran 4 mg tw2 Oral tab 1 tab 4 times per day [Active]; - PMHx: 08:29 None; tw2 - PSHx: 08:26 R arm repair; PICC line LEFT upper arm; right foot surgery; tw2 - Immunization history:: Client reports receiving the 2nd dose of the Covid vaccine. - Social history:: Smoking status: Patient denies any tobacco usage or history of. Screenin:32 Abuse screen: Denies threats or abuse. Nutritional screening: No deficits noted. tw2 Tuberculosis screening: No symptoms or risk factors identified. Fall Risk Secondary diagnosis (15 points) impaired mobility, pt ambulating with crutches. Assessment: 08:32 Pain: Pain does not radiate. Pain began 3 hours ago. tw2 09:04 General: Appears in no apparent distress. comfortable, Behavior is calm, cooperative, kr3 appropriate for age. Cardiovascular: Reports chest pain, pain increases as patients lays back or completely flat. 10:05 Reassessment: No changes from previously documented assessment. Patient and/or family kr3 updated on plan of care and expected duration. Pain level reassessed. Patient is alert, oriented x 3, equal unlabored respirations, skin warm/dry/pink. Reassessment: No changes from previously documented assessment. Patient and/or family updated on plan of care and expected duration. Pain level reassessed. 11:04 Reassessment: No changes from previously documented assessment. Patient and/or family kr3 updated on plan of care and expected duration. Pain level reassessed. 12:10 Reassessment: No changes from previously documented assessment. Patient and/or family kr3 updated on plan of care and expected duration. Pain level reassessed. Vital Signs: 08:23 Pulse Ox 98% on R/A; Weight 70.31 kg (R); Height 5 ft. 1 in. (154.94 cm); Pain 7/10; tw2 08:28 BP 146 / 116; Pulse 102; Resp 17; Temp 97.5(TE); tw2 09:25 BP 159 / 107; Pulse 79; Resp 16; Pulse Ox 95% on R/A; kr3 10:30 BP 159 / 114; Pulse 82; Resp 16; Pulse Ox 100% on R/A; kr3 11:30 BP 134 / 95; Pulse 78; Resp 16; Pulse Ox 98% on R/A; kr3 12:30 BP 141 / 97; Pulse 83; Resp 16; Temp 98.2(TE); Pulse Ox 99% on R/A; kr3 08:23 Body Mass Index 29.29 (70.31 kg, 154.94 cm) tw2 ED Course: 08:23 Patient arrived in ED. mr 08:23 Arm band placed on. tw2 08:26 Triage completed. tw2 08:28 Johan Escobar PA is PHCP. [facility] 08:28 Gui Kang MD is Attending Physician. jm 08:29 Bed in low position. Call light in reach. rigging and controls aircraft mechanic on. Pulse ox on. NIBP on. tw2 08:30 Linsey Jacobson RN is Primary Nurse. kr3 08:31 Patient maintains SpO2 saturation greater than 95% on room air. tw2 08:55 Missed attempt(s): 22 gauge in right antecubital area. Bleeding controlled, band aid kr3 applied, catheter tip intact. 09:25 Inserted saline lock: 22 gauge in right antecubital area, using aseptic technique. kr3 Blood collected. 09:32 XRAY Chest (1 view) In Process Unspecified. EDMS 10:20 CT Chest For PE Angio In Process Unspecified. EDMS 11:20 Troponin High Sensitivity Sent. kr3 12:55 No provider procedures requiring assistance completed. IV discontinued, intact, kr3 bleeding controlled, No redness/swelling at site. Pressure dressing applied. Administered Medications: 10:55 Drug: Zofran (Ondansetron) 4 mg Route: IVP; Site: right antecubital; kr3 12:52 Follow up: Response: No adverse reaction kr3 10:59 Drug: morphine 4 mg Route: IVP; Infused Over: 4 mins; Site: right antecubital; kr3 12:52 Follow up: Response: No adverse reaction; RASS: Alert and Calm (0) kr3 12:30 Drug: GI Cocktail without - (Maalox Suspension 30 ml, Lidocaine Liquid 2 % 15 kr3 ml) Route: PO; 12:52 Follow up: Response: No adverse reaction kr3 Medication: 08:32 VIS not applicable for this client. tw2 Outcome: 12:10 Discharge ordered by . jmm 12:55 Discharged to home ambulatory, with crutches. kr3 12:55 Condition: stable 12:55 Discharge instructions given to patient, Instructed on discharge instructions, follow up and referral plans. Demonstrated understanding of instructions, follow-up care. 12:56 Patient left the ED. kr3 Signatures: Dispatcher [employer] EDMS Johan Escobar PA PA jmm Rivera Freya Sylvester, RN RN tw2 Linsey Jacobson RN RN kr3 Corrections: (The following items were deleted from the chart) 08:29 08:23 Chief complaint: Patient states: i have a picc line and i am supposed to go to 2 day surgery for iv infusion.. and i am having chest pain that started 2 or 3 hours ago. i feel like i am having trouble swallowing. yesterday when i went to the infusion she couldn't get blood out of it. the chest pain starts behind my rib cage and under my left breast and shoots up into my collar bone. if i bend forward i feel like i am struggling to swallow. tw2 08:31 08:23 Chief complaint: Patient states: i have a picc line ( upper LEFT arm) and i am tw2 supposed to go to day surgery for iv infusion.. and i am having chest pain that started 2 or 3 hours ago. i feel like i am having trouble swallowing. yesterday when i went to the infusion she couldn't get blood out of it. the chest pain starts behind my rib cage and under my left breast and shoots up into my collar bone. if i bend forward i feel like i am struggling to swallow. i also felt more pain when laying flat tw2 09:19 General: Appears in no apparent distress. comfortable, Behavior is calm, kr3 cooperative, appropriate for age, kr3 09:19 Cardiovascular: Reports chest pain, pain increases as patients lays back or kr3 completely flat kr3
[2022-06-29] MEDS ORDERED: LIDOCAINE VISCOUS 2% SOLN 15 ML UDC ONE (12:37)
[2022-06-29] MEDS ORDERED: MAGNES/ALUMIN/SIMET 30ML UCUP ONE (12:37)
[2022-06-29 14:04] VITALS: BP 141/97; TEMP 98.2; O2SAT 99
--- NOTE | 2022-06-30 10:34 | EKG ---
Test Date: 2022-06-29 Test Time: 08:39:58 Forder Operator: ISAIAH MEASUREMENT RESULTS: Intervals: Rate: 95 SC: 138 QRSD: 74 QT: 336 QTc: 422 Boelus: P: 51 SC: 138 QRS: 51 T: 32 INTERPRETIVE STATEMENTS: Normal sinus rhythm Normal ECG No previous ECG available for comparison Electronically Signed On 06-30-22 10:31:30 CDT by Sathish Davalos
== END 2022-06-29 12:56 | disposition home or self-care (01) ==
LOC: ER 08:21
DX: R07.89 Other chest pain (principal); Z88.3 Allergy status to other anti-infective agents
CPT/HCPCS: 36415; 71045; 71275; 80048; 80076; 83735; 83880; 84484; 85025; 85379; 85610; 93005; J2405; Q9967

== ENCOUNTER → 2023-12-16 | Emergency (ER) | payer SELFPAY ==
[~2023-12-16] MED LIST: FAMOTIDINE 20 MG/2 ML VIAL IV ONE; KETOROLAC 30 MG/ML INJ ONE; LABETALOL 20 MG/4ML SYRINGE IV ONE; LOSARTAN POTASSIUM 50 MG TABLET ONE; NA CHLORIDE 0.9% 1,000 ML ONE; ONDANSETRON 4 MG/2 ML VIAL ONE
--- OUTSIDE RECORDS SUMMARY | 2023-12-16 08:39 | XMS REPORT | Continuity of Care Document ---
Author Name Unknown Address [address] [place] [address] [place] [address] thconnect Address [address] [place] [address] [address] [place] [address] Care Team Providers Care X Ray Nurse Name Role Phone Unavailable Unavailable Unavailable Results Test Description Test Time Test Comments Results Result Co mments Source LIPID [id number] 04:31:34* Test Item Value Reference Range Interpretation Comme nts CHOLESTEROL (test code = 2210) 192 MG/DL <200 TRIGLYCERIDES (test code = 2232) 212 MG/DL <150 H HDL CHOLESTEROL (test code = 2220) 45 MG/DL >39 CALC LDL CHOL (test code = 2237) 114 MG/DL <100 H NOTE: CALCULATED LDL IS BASED ON JIN-BELL METHOD WHICHINCLUDES ADJUSTABLE TRIGLYCERIDE:VLDL CHOLESTEROL RATIO.THIS FACTOR VARIES BY MEASURED TRIGLYCERIDE AND NON-HDLCHOLESTEROL CONCENTRATIONS WITH INCREASED CALCULATED LDL SEENIN HIGHER TRIGLYCERIDE OR LOWER NON-HDL SPECIMENS. FOR MOREINFORMATION, SEE CLIENT ANNOUNCEMENT AT [email or web address] RATIO LDL/HDL (test code = 2238) 2.53 RATIO <3.55 HEMOGLOBIN [id number] 03:50:57* Test Item Value Reference Range Interpretation Comme nts HEMOGLOBIN A1c (test code = 90614) 5.2 % 4.2-5.6 UNLESS OTHERWISE INDICATED, ALL TESTING PERFORMED [facility] [address] [place] [id number] RECRUITING ASSOCIATE: KELLI KINGSLEY M.D. CLIA NUMBER [id number] [facility] [place]. [id number] CBC W/AUTO DIFF WITH [id number] 02:29:11* Test Item Value Reference Range Interpretation Comme nts WBC (test code = 1001) 6.4 K/UL 3.5-11.0 RBC (test code = 1002) 4.89 M/UL 4.50-6.10 HEMOGLOBIN (test code = 1003) 14.2 G/DL 13.5-17.0 HEMATOCRIT (test code = 1004) 41.7 % 40.0-51.0 MCV (test code = 1005) 85.3 fL 80.0-99.0 MCH (test code = 1006) 29.0 PG 25.0-33.0 MCHC (test code = 1007) 34.1 G/DL 31.0-36.0 RDW (test code = 1038) 12.0 % 11.5-15.0 NEUTROPHILS (test code = 1008) 68.0 % LYMPHOCYTES (test code = 1010) 17.1 % MONOCYTES (test code = 1011) 12.4 % EOSINOPHILS (test code = 1012) 1.7 % BASOPHILS (test code = 1013) 0.5 % IMMATURE GRANULOCYTES (test code = 1036) 0.3 % NUCLEATED RBCS (test code = 1065) 0.0 /100 WBC'S See_Comment [Automated Symphogena ge] The system which generated this result transmitted reference range: 0.0. The reference range was not used to interpret this result as normal/abnormal. PLATELET COUNT (test code = 1015) 306 K/UL 130-400 ABSOLUTE NEUTROPHILS (test code = 1066) 4.37 K/UL 1.50-7.50 ABSOLUTE LYMPHOCYTES (test code = 1067) 1.10 K/UL 1.00-4.00 ABSOLUTE MONOCYTES (test code = 1068) 0.80 K/UL 0.20-1.00 ABSOLUTE EOSINOPHILS (test code = 1040) 0.11 K/UL 0.00-0.50 ABSOLUTE BASOPHILS (test code = 1069) 0.03 K/UL 0.00-0.20 ABS IMMATURE GRANULOCYTES (test code = 1020) 0.02 K/UL 0.00-0.10 ABS NUCLEATED RBCS (test code = 46253) 0.00 K/UL 0.00-0.11
[2023-12-16 09:59] LABS: Absolute Lymphocytes (CBC) 0.5 K/uL (0.7-4.9); Hematocrit 46.9 % (36.0-45.0); Lymphocytes % 3.4 % (15.3-44.8); MCV 88.6 fL (80-100); MPV 7.4 fL (7.6-11.3); Platelets 323 thou/uL (152-406); RBC Red Blood Cell Count 5.29 M/uL (3.86-4.86)
[2023-12-16 10:45] LABS: Albumin 3.6 g/dL (3.4-5.0); Bilirubin Total 0.7 mg/dL (0.2-1.0); Potassium 4.7 mEq/L (3.5-5.1); Protein, Total 7.3 g/dL (6.4-8.2)
[2023-12-16 11:16] LABS: Blood Morphology Comment NOT SEEN (NOT SEEN); Platelet Estimate ADEQ; White Blood Cell Scan OK (OK)
[2023-12-16 11:45] LABS: Specific Gravity 1.024 (1.005-1.030)
[2023-12-16 11:50] LABS: Specific Gravity 1.024 (1.005-1.030); Urine Bacteria <20 /HPF (<20); Urine Bilirubin NEGATIVE (Negative); Urine Blood Negative (Negative); Urine Clarity Turbid (Clear); Urine Color Light-Yellow (Yellow); Urine Glucose NEGATIVE (Negative); Urine Mucus Slight /HPF (None Seen); Urine Protein 1+ (Negative); Urine RBC <5 /HPF (None Seen); Urine Urobilinogen Normal (Normal); Urine pH 5.5 (5.0-7.0)
--- NOTE | 2023-12-16 12:46 | RAD REPORT ---
EXAM DESCRIPTION: CT - Abdomen Pelvis W Contrast - 12/16/2023 12:10 pm CLINICAL HISTORY: ABD PAIN COMPARISON: No comparisons TECHNIQUE: Thin cut axial CT imaging of the abdomen and pelvis was performed following intravenous a dministration of 100 mL Isovue 300. Multiplanar reformats were generated and reviewed. All CT scans are performed using dose optimization technique as appropriate and may include automated exposure control or mA/KV adjustment according to patient size. FINDINGS: No suspicious findings in the lung bases. The liver shows diffuse hepatic parenchymal hypoattenuation suggesting steatosis. Spleen, adrenal gla nds, and pancreas show no suspicious findings. Gallbladder and biliary tree are also without suspicio us finding. Symmetric renal function is seen with no hydronephrosis or suspicious renal mass. No dilated bowel loops or bowel wall thickening. Appendix is unremarkable. No free air, free fluid or inflammatory stranding. No hernia, mass or bulky lymphadenopathy. The urinary bladder is without sig nificant finding. No suspicious bony findings. IMPRESSION: No acute intra-abdominal process. Diffuse hepatic steatosis.
--- NOTE | 2023-12-16 12:53 | EDPHYS ---
Physician Documentation [facility] [place] Name: Rosmery Hdz Age: 28 yrs Sex: Female : 1995 Arrival Date: 12/16/2023 Time: 08:36 Bed 19 Private MD: ED Physician Leon Andersen HPI: 12/16 09:04 This 28 yrs old Female presents to ER via Unassigned with complaints of Vomiting. sb4 09:04 The patient presents to the emergency department with nausea, vomiting, abdominal pain. sb4 Onset: The symptoms/episode began/occurred 24 hour(s) ago. Possible causes: unknown. The symptoms are aggravated by food , The symptoms are alleviated by nothing. Associated signs and symptoms: Pertinent positives: abdominal pain, nausea, Pertinent negatives: constipation, diarrhea, dysuria, fever, vaginal discharge. The patient has not experienced similar symptoms in the past. The patient has not recently seen a physician. 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 - Social history:: Smoking status: Patient reports the use of cigarette tobacco products, denies chronic smoking, but will smoke occasionally. ROS: 09:04 Constitutional: Negative for fever, chills, and weight loss, sb4 09:04 Abdomen/GI: Positive for abdominal pain, nausea and vomiting, 09:04 All other systems are negative, Exam: 09:04 Constitutional: This is a well developed, well nourished patient who is awake, alert, sb4 and in no acute distress. Head/Face: Normocephalic, atraumatic. Eyes: Extra-ocular motions intact. Periorbital areas with no swelling, redness, or edema. Respiratory: Lungs have equal breath sounds bilaterally, clear to auscultation and percussion. No rales, rhonchi or wheezes noted. No increased work of breathing, no retractions or nasal flaring. Abdomen/GI: Soft, non-tender, no distension. Skin: Warm, dry with normal turgor. Normal color with no rashes, no lesions, and no evidence of cellulitis. MS/ Extremity: Pulses equal, no cyanosis. Neurovascular intact. Full, normal range of motion. Neuro: Awake and alert, GCS 15, oriented to person, place, time, and situation. Motor strength 5/5 in all extremities. Sensory grossly intact. 09:04 ENT: Mouth: Oral mucosa: dry, 09:04 Cardiovascular: Rate: tachycardic, Rhythm: regular, Vital Signs: 09:17 BP 169 / 115; Pulse 128; Resp 18; Temp 97.9(O); Pulse Ox 100% on R/A; Weight 86.18 kg; nj1 Height 5 ft. 1 in. ; Pain 7/10; 10:00 BP 186 / 107; Pulse 120; Resp 18; Pulse Ox 99% on R/A; nj1 10:10 BP 170 / 103; Pulse 100; Resp 18; Pulse Ox 98% on R/A; nj1 10:41 BP 167 / 104; Pulse 105; Resp 18; Pulse Ox 98% ; nj1 12:24 BP 175 / 97; Pulse 110; Resp 18; Pulse Ox 99% ; Pain 0/10; tl4 13:45 BP 175 / 95; Pulse 102; Resp 15; Pulse Ox 99% on R/A; Pain 2/10; tl4 09:17 Body Mass Index 35.90 (86.18 kg, 154.94 cm) nj1 09:17 Pain Scale: Adult nj1 12:24 Pain Scale: Adult tl4 13:45 Pain Scale: Adult tl4 Callao Coma Score: 12:24 Eye Response: spontaneous(4). Motor Response: obeys commands(6). Verbal Response: tl4 oriented(5). Total: 15. MDM: 08:57 Patient medically screened. sb4 09:04 Differential diagnosis: gastritis, viral gastroenteritis, gastroenteritis, , sb4 cholelithiasis, cholecystitis. 12:52 Data reviewed: vital signs, nurses notes, lab test result(s), radiologic studies, and sb4 as a result, I will discharge patient. Care significantly affected by the following chronic conditions: Hypertension. Counseling: I had a detailed discussion with the patient and/or guardian regarding the historical points, exam findings, and any diagnostic results supporting the discharge/admit diagnosis, the presence of at least one elevated blood pressure reading (>120/80) during this emergency department visit, lab results, radiology results, the need for outpatient follow up, for definitive care, to return to the emergency department if symptoms worsen or persist or if there are any questions or concerns that arise at home. 12/16 09:03 Order name: CBC with Diff; Complete Time: 11:17 sb4 12/16 09:03 Order name: CMP; Complete Time: 10:49 sb4 12/16 09:03 Order name: Lipase; Complete Time: 10:49 sb4 12/16 09:03 Order name: Test, Urine; Complete Time: 11:49 sb4 12/16 09:03 Order name: Urinalysis w/ reflexes; Complete Time: 11:51 sb4 12/16 11:17 Order name: CBC Smear Scan; Complete Time: 11:17 EDMS 12/16 09:03 Order name: CT Abd/Pelvis - IV Contrast Only; Complete Time: 12:47 sb4 12/16 09:03 Order name: IV Saline Lock; Complete Time: 09:16 sb4 12/16 09:03 Order name: Labs collected and sent; Complete Time: 09:16 sb4 12/16 09:27 Order name: Labs - recollect needed: recollect blood/ hemolyzed per Alejandro; Complete eb Time: 09:56 12/16 10:04 Order name: Labs - recollect needed: recollect the recollect hemolyzed per Alejandro; eb Complete Time: 10:37 12/16 12:54 Order name: PO challenge; Complete Time: 13:44 sb4 Administered Medications: 09:14 Drug: NS 0.9% IV 1000 ml IV at 1 bolus Per protocol; 1000 mL bolus Route: IV; Rate: 1 ko1 bolus; Site: right antecubital; 12:55 Follow up: Response: No adverse reaction; IV Status: Completed infusion; IV Intake: tl4 1000ml 09:14 Drug: Famotidine IVP 20 mg IVP once; dilute with 10 mL 0.9% NaCl; give over 2 minutes ko1 Route: IVP; Site: right antecubital; 12:55 Follow up: Response: No adverse reaction tl4 09:14 Drug: Ondansetron IVP 4 mg IVP once; over 2 minutes Route: IVP; Site: right antecubital;ko1 12:54 Follow up: Response: Nausea is decreased tl4 10:02 Drug: NS 0.9% IV 1000 ml IV at 1 bolus Per protocol; 1000 mL bolus Route: IV; Rate: 1 nj1 bolus; Site: right antecubital; 12:55 Follow up: Response: No change in condition; IV Status: Completed infusion; IV Intake: tl4 1000ml 10:04 Drug: Labetalol IV 10 mg IV at calculated rate once Route: IV; Rate: calculated rate; nj1 Site: right antecubital; 13:45 Follow up: Response: Blood pressure is lowered; IV Status: Completed infusion tl4 13:04 Drug: Losartan PO 50 mg PO once Route: PO; tl4 13:45 Follow up: Response: No adverse reaction tl4 13:04 Drug: Ketorolac IVP 30 mg IVP once Route: IVP; Site: right antecubital; tl4 13:44 Follow up: Response: Pain is decreased tl4 Disposition Summary: 12/16/23 12:53 Discharge Ordered Notes: Location: Home sb4 Problem: new sb4 Symptoms: have improved sb4 Condition: Stable sb4 Diagnosis - Noninfective gastroenteritis and colitis, unspecified sb4 - Essential (primary) hypertension sb4 Followup: sb4 - With: Jamel Romero, DO - When: 2 - 3 days - Reason: Recheck today's complaints, Continuance of care, Re-evaluation by your physician Discharge Instructions: - Discharge Summary Sheet sb4 - Viral Gastroenteritis, Adult sb4 - Hypertension, Adult, [id number] sb4 Forms: - Medication Reconciliation Form sb4 - Thank You Letter sb4 - Antibiotic Education sb4 - Prescription Opioid Use sb4 - Patient Portal Instructions sb4 - Leadership Thank You Letter sb4 Prescriptions: - losartan 50 mg Oral tablet - take 1 tablet ORAL route daily; 30 tablet; Refills: 0, Product Selection sb4 Permitted - Zofran 4 mg Oral Tablet - take 1 tablet ORAL route every 12 hours As needed; 20 tablet; Refills: 0, sb4 Product Selection Permitted Addendum: 12/18/2023 15:33 I was immediately available for consultation during this patient's visit. I did not e c2 personally see the patient or discuss the patient with the [facility]. . Signatures: Dispatcher [employer] Zahraa Rosales Kathy, RN RN ko1 Hannah Conte, LENA PAAlexei sb4 Jenn Apple RN RN nj1 Leon Andersen MD MD ec2 Kirk Pablo tl4
--- NOTE | 2023-12-16 12:53 | ER ---
Nurse's Notes [facility] [place] Name: Rosmery Hdz Age: 28 yrs Sex: Female : 1995 Arrival Date: 12/16/2023 Time: 08:36 Bed 19 Private MD: Diagnosis: Noninfective gastroenteritis and colitis, unspecified;Essential (primary) hypertension Presentation: 12/16 09:17 Chief complaint: Patient states: vomiting for 24 hours "unable to keep anything down". [facility] Coronavirus screen: Vaccine status: Patient reports receiving the 2nd dose of the covid vaccine. Ebola Screen: Patient denies travel to an Ebola-affected area in the 21 days before illness onset. Initial Sepsis Screen: Does the patient meet any 2 criteria? HR > 90 bpm. No. Patient's initial sepsis screen is negative. Does the patient have a suspected source of infection? No. Patient's initial sepsis screen is negative. Risk Assessment: Do you want to hurt yourself or someone else? Patient reports no desire to harm self or others. Onset of symptoms was December 15, 2023. 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 - Social history:: Smoking status: Patient reports the use of cigarette tobacco products, denies chronic smoking, but will smoke occasionally. Screenin:19 [facility] ED Fall Risk Assessment (Adult) Score/Fall Risk Level 0 - 2 = Low Risk nj Oriented to surroundings, Maintained a safe environment, Hourly rounding (assess needs \\T\\ fall precautionary measures) done. Abuse screen: Denies threats or abuse. Denies injuries from another. Nutritional screening: No deficits noted. Tuberculosis screening: No symptoms or risk factors identified. Assessment: 09:10 General: Appears in no apparent distress. uncomfortable, Behavior is calm, cooperative, nj1 appropriate for age. Pain: Complains of pain in back and abdomen Pain currently is 7 out of 10 on a pain scale. Neuro: Level of Consciousness is awake, alert, obeys commands, Oriented to person, place, time, situation. Cardiovascular: Patient's skin is warm and dry. Respiratory: Airway is patent Respiratory effort is even, unlabored. GI: Reports lower abdominal pain, upper abdominal pain, nausea, vomiting, since yesterday. 10:10 Reassessment: Patient appears in no apparent distress at this time. Patient and/or nj1 family updated on plan of care and expected duration. Pain level reassessed. Patient is alert, oriented x 3, equal unlabored respirations, skin warm/dry/pink. Patient states symptoms have improved. 12:27 Reassessment: No changes from previously documented assessment. Patient and/or family tl4 updated on plan of care and expected duration. Pain level reassessed. Patient is alert, oriented x 3, equal unlabored respirations, skin warm/dry/pink. GI: Abdomen is non-distended, Abd is soft X 4 quads. Vital Signs: 09:17 BP 169 / 115; Pulse 128; Resp 18; Temp 97.9(O); Pulse Ox 100% on R/A; Weight 86.18 kg; nj1 Height 5 ft. 1 in. ; Pain 7/10; 10:00 BP 186 / 107; Pulse 120; Resp 18; Pulse Ox 99% on R/A; nj1 10:10 BP 170 / 103; Pulse 100; Resp 18; Pulse Ox 98% on R/A; nj1 10:41 BP 167 / 104; Pulse 105; Resp 18; Pulse Ox 98% ; nj1 12:24 BP 175 / 97; Pulse 110; Resp 18; Pulse Ox 99% ; Pain 0/10; tl4 13:45 BP 175 / 95; Pulse 102; Resp 15; Pulse Ox 99% on R/A; Pain 2/10; tl4 09:17 Body Mass Index 35.90 (86.18 kg, 154.94 cm) nj1 09:17 Pain Scale: Adult nj1 12:24 Pain Scale: Adult tl4 13:45 Pain Scale: Adult tl4 Samra Coma Score: 12:24 Eye Response: spontaneous(4). Motor Response: obeys commands(6). Verbal Response: tl4 oriented(5). Total: 15. ED Course: 08:38 Patient arrived in ED. mg5 08:57 Hannah Conte PA-C [facility] sb4 08:57 Leon Andersen MD is Attending Physician. sb4 09:10 Inserted saline lock: 22 gauge in right antecubital area, using aseptic technique. nj1 Blood collected. 09:12 Notified Nurse Practitioner and/or Physician [employer] of vital signs. nj1 09:16 Jenn Apple, MARILYN is Primary Nurse. nj1 09:19 Triage completed. nj1 09:19 Arm band placed on right wrist. nj1 09:21 Patient has correct armband on for positive identification. Bed in low position. Call nj1 light in reach. Provided Education on: call light, fall precautions. 11:17 Radiology exam delayed due to test not completed at this time. mw3 11:59 Report given to Kirk Adkins RN. nj1 12:12 CT Abd/Pelvis - IV Contrast Only In Process Unspecified. EDMS 12:20 No provider procedures requiring assistance completed. tl4 12:53 Jamel Romero DO is Referral Physician. sb4 13:46 IV discontinued, intact, bleeding controlled, No redness/swelling at site. Pressure tl4 dressing applied. Administered Medications: 09:14 Drug: NS 0.9% IV 1000 ml IV at 1 bolus Per protocol; 1000 mL bolus Route: IV; Rate: 1 ko1 bolus; Site: right antecubital; 12:55 Follow up: Response: No adverse reaction; IV Status: Completed infusion; IV Intake: tl4 1000ml 09:14 Drug: Famotidine IVP 20 mg IVP once; dilute with 10 mL 0.9% NaCl; give over 2 minutes ko1 Route: IVP; Site: right antecubital; 12:55 Follow up: Response: No adverse reaction tl4 09:14 Drug: Ondansetron IVP 4 mg IVP once; over 2 minutes Route: IVP; Site: right antecubital;ko1 12:54 Follow up: Response: Nausea is decreased tl4 10:02 Drug: NS 0.9% IV 1000 ml IV at 1 bolus Per protocol; 1000 mL bolus Route: IV; Rate: 1 nj1 bolus; Site: right antecubital; 12:55 Follow up: Response: No change in condition; IV Status: Completed infusion; IV Intake: tl4 1000ml 10:04 Drug: Labetalol IV 10 mg IV at calculated rate once Route: IV; Rate: calculated rate; nj1 Site: right antecubital; 13:45 Follow up: Response: Blood pressure is lowered; IV Status: Completed infusion tl4 13:04 Drug: Losartan PO 50 mg PO once Route: PO; tl4 13:45 Follow up: Response: No adverse reaction tl4 13:04 Drug: Ketorolac IVP 30 mg IVP once Route: IVP; Site: right antecubital; tl4 13:44 Follow up: Response: Pain is decreased tl4 Medication: 12:21 VIS not applicable for this client. tl4 Intake: 12:55 IV: 1000ml; Total: 1000ml. tl4 12:55 IV: 1000ml; Total: 2000ml. tl4 Outcome: 12:53 Discharge ordered by MD. sb4 13:46 Discharged to home ambulatory, tl4 13:46 Condition: stable 13:46 Discharge instructions given to patient, Instructed on discharge instructions, follow up and referral plans. medication usage, Demonstrated understanding of instructions, follow-up care, medications, Prescriptions given X 2, 13:46 Patient left the ED. tl4 Signatures: Dispatcher [employer] EDMS Ivelisse Pettit mw3 Lety Leone, RN RN ko1 Hannah Conte PACaitieC PACaitieC sb4 Jenn Apple RN RN nj1 Cary Tellez mg5 Kirk Pablo tl4
[2023-12-16 16:05] VITALS: TEMP 97.9
[2023-12-16 16:33] VITALS: BP 175/95; O2SAT 99
== END ==
LOC: ER 08:36
DX: K52.9 Noninfective gastroenteritis and colitis, unspecified (principal); R11.2 Nausea with vomiting, unspecified; I10 Essential (primary) hypertension; R10.30 Lower abdominal pain, unspecified; R10.10 Upper abdominal pain, unspecified; Z72.0 Tobacco use; Z88.1 Allergy status to other antibiotic agents
CPT/HCPCS: 36415; 74177; 80053; 81001; 81025; 83690; 85025; 96361; 96365; 96366; 96375; 99284; J2405; J7030; Q9967